=== PATIENT | female | born 1960 | race Caucasian/White ===

== ENCOUNTER → 2016-10-14 | Outpatient (CLI) | payer MEDICARE ==
[~2016-10-14] MED LIST: BACTRIM DS TABL1 TAB PO; DEPAKOTE PO; DIFLUCAN PO; GLUCOPHAGE XR500 MG PO; GLUCOTROL10 MG PO; GLUMETZA1000 MG/BO PO; INDOMETHACIN75 MG PO; LAMICTAL100 MG PO; LEXAPRO PO; METFORMIN HCL500 M1 PO; NEURONTIN600 MG PO; PANTOPRAZOLE SO40 MG PO; ZESTRIL2.5 MG PO; ZOFRAN ODT4 MG PO
--- NOTE | ~2016-10-14 | US6 ---
[facility] A Service of [facility] RADIOLOGY TEXT RESULTS PATIENT: JERSEY CROOKS LOCATION: [facility] : 56 UNIT #: [id number] AGE: [address]: Mechelle Zapata SEX: F ORDER DR: [id number] [address] [address] [id number] O MR#: [id number] Acc #: [id number] NAME: JERSEY CROOKS : 1960 SEX: F STUDY DATE/TIME: 10/14/2016 9:37 UNIT: SG ROOM: STUDY DESCRIPTION: US Abdominal Limited Attending Physician: Mechelle Zapata A.P.R.N. Referring Physician: Mechelle Zapata A.P.R.N. Ordering Physician: Mechelle Zapata A.P.R.N. Primary Care Physician: Mechelle Zapata A.P.R.N. MEDICAL IMAGING REPORT This report is preliminary unless electronic signature is present. EXAM Right upper quadrant ultrasound INDICATION Right upper quadrant right-sided flank pain for 1 year. Patient does have a history of hepatitis C and pancreatitis. TECHNIQUE Slaughter-scale and color Doppler sonographic images were obtained through the right upper quadrant. FINDINGS Pancreas cannot be visualized due to overlying bowel gas. Patient's liver is enlarged measuring up to 18.4 cm in craniocaudal dimensions. It is echogenic likely reflecting underlying hepatic steatosis. The main portal vein is patent with hepatopetal flow. Gallbladder is normal in appearance with no stones or sludge seen. There is no gallbladder wall thickening or pericholecystic fluid. Dietetics Director questions some dilatation of the pancreatic duct which has also been suggested on prior studies but, again, is incompletely evaluated on this examination. The right kidney contains a hypoechoic area measuring up to 1.1 x 1.2 x 1.0 cm which I am not completely convinced represents a simple renal cyst. IMPRESSION 1. Hepatomegaly and diffuse hepatic steatosis. 2. Dietetics Director measures a hypoechoic area within the right kidney measuring up to 1.1 x 1.2 x 1.2 cm. This is not definitively a simple cyst by the submitted images. Further evaluation with renal protocol CT or MRI is recommended. 3. There is very limited visualization of the pancreas. On prior study, there was a question of enlargement of the pancreatic duct and similar findings are present on today's examination. Again, CT or MRI would allow for further assessment. [facility] A Service of [facility] RADIOLOGY TEXT RESULTS PATIENT: JERSEY CROOKS LOCATION: [facility] : 56 UNIT #: [id number] AGE: [address]: Mechelle Zapata SEX: F ORDER DR: STAT * RESULT Dictated by... Krys Calderon M.D. THIS IS AN ELECTRONICALLY VERIFIED REPORT Krys Calderon M.D. at 10/14/2016 4:36 PM AFF/aa TD: 10/14/2016 14:31 JOB #: [id number] MEDICAL IMAGING REPORT Page 1 of 1
== END | disposition home or self-care (01) ==
LOC: SGUS 09:20
DX: R10.11 Right upper quadrant pain (principal); K76.0 Fatty (change of) liver, not elsewhere classified
CPT/HCPCS: 76705

== ENCOUNTER → 2016-12-13 | Outpatient (CLI) | payer MEDICARE, BC ==
--- NOTE | ~2016-12-13 | CT3 ---
[facility]. [facility] A Service of [facility] RADIOLOGY TEXT RESULTS PATIENT: JERSEY CROOKS LOCATION: [facility] : 56 UNIT #: [id number] AGE: [address]: Roge Berger MD SEX: F ORDER DR: [id number] [address] [address] [id number] O MR#: [id number] Acc #: [id number] NAME: JERSEY CROOKS : 1960 SEX: F STUDY DATE/TIME: 12/13/2016 10:49 UNIT: [facility] ROOM: STUDY DESCRIPTION: CT Abd and Pelv WWo Cont Attending Physician: Roge Berger M.D. Referring Physician: Roge Berger M.D. Ordering Physician: Roge Berger M.D. Primary Care Physician: Roge Berger M.D. MEDICAL IMAGING REPORT This report is preliminary unless electronic signature is present. EXAM CT abdomen and pelvis with and without contrast 12/13/2016 INDICATIONS Possible cyst in the kidney demonstrated on ultrasound. TECHNIQUE CT of the abdomen and pelvis was performed before and after the administration of IV contrast using a multiphase renal protocol. Coronal, sagittal reformatted images were obtained. This CT exam was performed with one or more of the following radiation dose reduction techniques: automatic exposure control, adjustment of mA and/or kV according to patient size, and iterative reconstruction. COMPARISON There are no comparison studies available. FINDINGS Lung bases are clear. Fatty infiltration of the liver. Gallbladder and spleen are unremarkable. There are scattered tiny cysts in the kidneys. There is a small parapelvic cyst in the lower pole of the left kidney. There are tiny nonobstructing stones in the lower pole of the left kidney. The adrenal glands are unremarkable. There are coarse pancreatic calcifications suggesting chronic pancreatitis. PELVIS: Hysterectomy. The colon is unremarkable. The appendix is normal. No free fluid. Bone windows are unremarkable. IMPRESSION 1. Bilateral renal cysts. No evidence for solid renal mass. [facility] A Service of [facility] RADIOLOGY TEXT RESULTS PATIENT: JERSEY CROOKS LOCATION: [facility] : 56 UNIT #: [id number] AGE: [address]: Roge Berger MD SEX: F ORDER DR: 2. Diffuse fatty infiltration of the liver. 3. Multiple coarse pancreatic calcifications with some dilatation of the pancreatic duct. Findings are compatible with chronic pancreatitis. Dictated by... Joel Dubose M.D. THIS IS AN ELECTRONICALLY VERIFIED REPORT Joel Dubose M.D. at 12/14/2016 7:46 AM CLARIBEL/je TD: 12/13/2016 15:40 JOB #: [id number] MEDICAL IMAGING REPORT Page 1 of 1
[2016-12-13 10:55] LABS: POC - CREATININE 0.99 mg/dL (0.44-1.03); POC - GFR >60.0 mL/min (>60)
== END | disposition home or self-care (01) ==
LOC: SCT 09:05
PROVIDERS: Family Medicine
DX: N28.1 Cyst of kidney, acquired (principal); Q45.3 Other congenital malformations of pancreas and pancreatic duct; K76.0 Fatty (change of) liver, not elsewhere classified
CPT/HCPCS: 74178; 82565; Q9967